=== PATIENT | female | born 1945 ===

== ENCOUNTER 2016-07-07 09:15 | Outpatient (RCR) | payer MEDICARE, OTHER | END 2016-08-02 | disposition home or self-care (01) | LOC: PTY 09:15 | DX: M54.5 Low back pain (principal); M48.03 Spinal stenosis, cervicothoracic region | CPT/HCPCS: 97110; 97140; 97162; G0283; G8981; G8982 ==

== ENCOUNTER 2016-08-12 15:25 | Outpatient (RCR) | payer MEDICARE, OTHER | END 2016-09-02 | disposition home or self-care (01) | LOC: PTY 15:25 | DX: M54.5 Low back pain (principal); M48.03 Spinal stenosis, cervicothoracic region | CPT/HCPCS: 97110; 97140; G0283 ==

== ENCOUNTER 2016-09-07 09:50 | Outpatient (RCR) | payer MEDICARE, OTHER | END 2016-10-02 | disposition home or self-care (01) | LOC: PTY 09:50 | DX: M54.5 Low back pain (principal); M48.03 Spinal stenosis, cervicothoracic region | CPT/HCPCS: 97110; 97140; G0283; G8982; G8983 ==